=== PATIENT | male | born 1945 | race Caucasian/White ===

== ENCOUNTER → 2016-07-01 | Day surgery (SDC) | payer MEDICARE ==
[~2016-07-01] MED LIST: BUPIVACAINE/EPINEPHRINE 0.25% 50 ML VIAL ONE; KETOROLAC TROMETHAMINE 30 MG/ML (IVP) VIAL IV PUSH ONE; LACTATED RINGER'S 1000 ML INJ 1,000 ML ONE; MIDAZOLAM HCL 2 MG/2 ML VIAL ONE; ONDANSETRON HCL 4 MG/2 ML VIAL IV PUSH ONE; PROPOFOL 200 MG/20 ML AMP IV ONE; ceFAZolin 2 GM PREMIX 50 ML ONE
--- NOTE | 2016-07-01 16:13 | TN ---
cc: RAMA VEGA M.D. DATE OF SURGERY 07/01/2016 PREOPERATIVE DIAGNOSIS Right inguinal hernia, umbilical hernia. POSTOPERATIVE DIAGNOSIS Chronic right indirect inguinal hernia, spermatic cord lipoma, umbilical hernia. PROCEDURE Laparoscopic repair right inguinal hernia with mesh, open repair umbilical hernia. SURGEON Dr. Rama Vega AN/SYQ 13 NAV/C2 OPERATOR IFEOMA Torres ANESTHESIA General. INDICATION A very pleasant 70-year-old gentleman who presented to the office with a long history of right inguinal hernia. He had an inciting event about 13 or 14 years ago. Recently with increased activity he develops a bulge and significant discomfort and a hernia that was difficult to reduce. He had an incidentally discovered umbilical hernia. INTRAOPERATIVE FINDINGS Large chronic indirect inguinal hernia sac reduced from the inguinal canal. 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 Small fingertip size umbilical hernia with preperitoneal fat. ESTIMATED BLOOD LOSS Less than 5 ml. This procedure was assisted by my nurse practitioner. The specific skill set of a nurse practitioner was medically necessary to facilitate the efficiency and adequate visualization during the procedure. During the surgical procedure the process development technician was of the back table providing appropriate instrumentation while the nurse practitioner was directly assisting me through the entirety of the procedure. DESCRIPTION OF PROCEDURE IN DETAIL The patient identified as Shorty Toledo taken to the operating room and placed in the supine position. Sequential compression devices were placed on bilateral lower extremities. Following induction of adequate general anesthesia, the patient's lower abdomen was prepped and draped in usual sterile fashion with Betadine. A time-out procedure was performed. Following completion time-out procedure to everyone's satisfaction within the room, 0.25% Marcaine with epinephrine was placed at each incision site and around the umbilicus. Infraumbilical transverse 2-3 cm incision was carried out with scalpel dissection continued posteriorly to the level of the anterior rectus fascia on the right side. This was incised in a vertical fashion allowing for entry in to the preperitoneal space using the surgeon's finger directed towards the pubic symphysis. With the patient in slight Trendelenburg position, the preperitoneal dissecting balloon was placed in preperitoneal space under direct laparoscopic view and inflated to a total of 30 pumps. This allowed for identification of Ron's ligament and the inferior epigastric vessels. The balloon was desufflated and removed and the structural balloon trocar placed in preperitoneal space, its balloon inflated to insufflation to level of 11 mmHg ensued. Two infraumbilical midline 5 mm trocars were then placed in the preperitoneal space under direct laparoscopic view after incision of the skin with a scalpel. Attention was turned to identification of spermatic cord and its contents. Blunt dissection lateral and posterior spermatic cord was performed with blunt graspers. The anteromedial surface examined. There was an obvious chronic indirect inguinal hernia sac which was reduced from the inguinal canal to the base of spermatic cord using blunt graspers. Posterolaterally spermatic cord lipoma was reduced from the inguinal canal into the preperitoneal space using blunt graspers. Posterior window was developed with the blunt graspers. There was no evidence of direct or femoral hernia. A 4 x 6 inches piece of Atrium ProLite mesh was cut with an anterolateral slit placed around spermatic cord and tacked into position with a ProTack device. Tacks were placed to approximate the anterolateral slit and on the a anterior lateral border of Ron's ligament. A 2 x 6 inch piece of the mesh was then placed over the anterolateral slit and held in position with the ProTack device. A single tack was placed superolaterally and inferomedially as well as superior medially. Photographs taken of the completed repair. Remaining local anesthetic was placed in preperitoneal space. Trocars removed under direct visualization. There was no evidence of bleeding from trocar sites. Preperitoneal space was desufflated while actively holding the inferolateral portion of mesh against the abdominal wall. The peritoneum and the preperitoneal fatty tissue was allowed to lay on top of the mesh. The infraumbilical trocar was removed. The anterior rectus fascial incision was closed with running 2-0 Vicryl suture. The umbilicus was then lifted up off of the herniated preperitoneal fatty tissue using Metzenbaum scissors. The anterior fascia was circumferentially cleared for about a centimeter or two around the umbilical hernia defect which was fingertip size. This was primarily repaired with interrupted inverted 0 Prolene sutures. The umbilicus was reformed with interrupted 2-0 Vicryl sutures. Skin was approximated with running 4-0 Monocryl subcuticular suture at the umbilicus and interrupted inverted 4-0 Monocryl subcuticular sutures of the trocar sites. The incisions were dressed with Mastisol and one-half inch brown Steri-Strips. Gauze and Tegaderm were placed over the umbilicus. The patient tolerated the procedure without apparent complication. Sponge, needle and instrument counts were correct at the end of the case. MD AIME Elkins/YESSICA /3:31 PM /3:52 PM
== END | disposition home or self-care (01) ==
LOC: ESDC 12:25
PROVIDERS: ATTEND Surgery Trauma Surgery
DX: K40.90 Unilateral inguinal hernia, without obstruction or gangrene, not specified as recurrent (principal); K42.9 Umbilical hernia without obstruction or gangrene; D17.6 Benign lipomatous neoplasm of spermatic cord
CPT/HCPCS: 00750; 00840; 49585; 49650; C1727; C1781; J0690; J1885; J2250; J2405; J3010; J7120